=== PATIENT | male | born 1950 | race Asian ===

== ENCOUNTER 2018-01-08 19:38 | Emergency (ER) | END 2018-01-09 05:45 | disposition home or self-care (01) ==

== ENCOUNTER 2019-07-03 08:39 | Day surgery (SDC) | payer OTHER ==
[~2019-07-03] VITALS: Ht 152.4 cm; Wt 54.8 kg
[~2019-07-03 08:39] MED LIST: AMLO-145 PO; ASPI-817 ORAL; ASPIRIN; ATOR20TA65 ORAL; ATORVASTATIN; CARV6.2579 PO; CLOP75TA19 PO; COLCHICINE; CRES20 PO; DILT90TA ORAL; LEVO250T9 PO; LIDO1KIT TP; LOSA50TA14 PO; PANT20TA3 ORAL; PROTONIX; SODI650T PO; TRIA15CR55 SUBD
[2019-07-03 09:18] VITALS: Ht 152.4 cm; Wt 54.8 kg
[2019-07-03 09:50] VITALS: BP 165/75; PULSE 65; RESP 18
[2019-07-03] MEDS ORDERED: PROPOFOL 20 ML ONE (10:16)
[2019-07-03] MEDS ORDERED: LIDOCAINE 100 MG SYRINGE ONE (10:16)
== END 2019-07-03 11:54 | disposition home or self-care (01) ==
LOC: GIL 08:39
PROVIDERS: ATTEND Internal Medicine Gastroenterology
DX: Z12.11 Encounter for screening for malignant neoplasm of colon (principal); D12.5 Benign neoplasm of sigmoid colon; I12.0 Hypertensive chronic kidney disease with stage 5 chronic kidney disease or end stage renal disease; N18.6 End stage renal disease; Z99.2 Dependence on renal dialysis
CPT/HCPCS: 84132; 88305; J2001